=== PATIENT | male | born 1990 | race African-American/Black ===

== ENCOUNTER 2019-02-05 19:46 | Emergency (ER) | payer SELFPAY ==
[~2019-02-05] VITALS: Ht 180.3 cm; Wt 104.3 kg
--- NOTE | 2019-02-05 20:25 | PHYS DOC ---
Past Medical History Past Medical History: No Pertinent History Past Surgical History: No Surgical History Alcohol Use: None Drug Use: None Adult General Chief Complaint Chief Complaint: CHEST PAIN HPI HPI Patient is a 28 year old M who presents with chest pain. The pain began while he was at work about 2 hours ago. He states the pain is a squeezing and aching sensation that worsens with inhalation. He denies any sweating, radiation, vomiting, back pain, or previous episodes in the past. He has no past medical history but does have a family history of an ID in his father at the age of 46. worse with deep breathing worse with moving the left shoulder. Review of Systems Review of Systems Constitutional: Denies fever or chills [] Eyes: Denies change in visual acuity, redness, or eye pain [] HENT: Denies nasal congestion or sore throat [] Respiratory: Denies cough or shortness of breath [] Cardiovascular: No additional information not addressed in HPI [] GI: Denies abdominal pain, nausea, vomiting, bloody stools or diarrhea [] : Denies dysuria or hematuria [] Musculoskeletal: Denies back pain or joint pain [] Integument: Denies rash or skin lesions [] Neurologic: Denies headache, focal weakness or sensory changes [] Endocrine: Denies polyuria or polydipsia [] All other systems were reviewed and found to be within normal limits, except as documented in this note. Current Medications Current Medications Current Medications Medications (Trade) Dose Ordered Sig/Isac Start Time Stop Time Status Last Admin Dose Admin Ketorolac Tromethamine (Toradol 15mg Vial) 15 mg 1X ONCE 02/05/19 20:30 02/05/19 20:31 DC 02/05/19 20:44 15 MG Allergies Allergies Allergies Coded Allergies Type Severity Reaction Last Updated Verified No Known Drug Allergies 10/12/13 No Physical Exam Physical Exam Constitutional: Well developed, well nourished, no acute distress, non-toxic appearance. [] HENT: Normocephalic, atraumatic, bilateral external ears normal, oropharynx moist, no oral exudates, nose normal. [] Eyes: PERRLA, EOMI, conjunctiva normal, no discharge. [] Neck: Normal range of motion, no tenderness, supple, no stridor. [] Cardiovascular:Heart rate regular rhythm, no murmur [] Lungs & Thorax: Bilateral breath sounds clear to auscultation [] Abdomen: Bowel sounds normal, soft, no tenderness, no masses, no pulsatile masses. [] Skin: Warm, dry, no erythema, no rash. [] Back: No tenderness, no CVA tenderness. [] Extremities: No tenderness, no cyanosis, no clubbing, ROM intact, no edema. [] Neurologic: Alert and oriented X 3, normal motor function, normal sensory function, no focal deficits noted. [] Psychologic: Affect normal, judgement normal, mood normal. [] Current Patient Data Vital Signs Vital Signs Date Time Temp Pulse Resp B/P (MAP) Pulse Ox O2 Delivery O2 Flow Rate FiO2 02/05/19 22:30 76 19 136/78 (97) 96 02/05/19 19:53 98.1 Room Air 98.1 Lab Values Laboratory Tests Test 02/05/19 20:00 02/05/19 22:26 White Blood Count 7.1 x10^3/uL (4.0-11.0) Red Blood Count 5.43 x10^6/uL (4.30-5.70) Hemoglobin 14.7 g/dL (13.0-17.5) Hematocrit 44.1 % (39.0-53.0) Mean Corpuscular Volume 81 fL (79-100) Mean Corpuscular Hemoglobin 27 pg (25-35) Mean Corpuscular Hemoglobin Concent 33 g/dL (31-37) Red Cell Distribution Width 13.6 % (11.5-14.5) Platelet Count 210 x10^3/uL (140-400) Neutrophils (%) (Auto) 57 % (31-73) Lymphocytes (%) (Auto) 31 % (24-48) Monocytes (%) (Auto) 9 % (0-9) Eosinophils (%) (Auto) 3 % (0-3) Basophils (%) (Auto) 1 % (0-3) Neutrophils # (Auto) 4.0 x10^3uL (1.8-7.7) Lymphocytes # (Auto) 2.2 x10^3/uL (1.0-4.8) Monocytes # (Auto) 0.6 x10^3/uL (0.0-1.1) Eosinophils # (Auto) 0.2 x10^3/uL (0.0-0.7) Basophils # (Auto) 0.1 x10^3/uL (0.0-0.2) Sodium Level 140 mmol/L (136-145) Potassium Level 3.7 mmol/L (3.5-5.1) Chloride Level 104 mmol/L (98-107) Carbon Dioxide Level 26 mmol/L (21-32) Anion Gap 10 (6-14) Blood Urea Nitrogen 16 mg/dL (8-26) Creatinine 1.0 mg/dL (0.7-1.3) Estimated GFR (Cockcroft-Gault) 108.5 BUN/Creatinine Ratio 16 (6-20) Glucose Level 119 mg/dL (70-99) H Calcium Level 9.4 mg/dL (8.5-10.1) Total Bilirubin 0.3 mg/dL (0.2-1.0) Aspartate Amino Transferase (AST) 21 U/L (15-37) Alanine Aminotransferase (ALT) 49 U/L (16-63) Alkaline Phosphatase 70 U/L (46-116) Troponin I Quantitative < 0.017 ng/mL (0.000-0.055) < 0.017 ng/mL (0.000-0.055) Total Protein 8.0 g/dL (6.4-8.2) Albumin 4.1 g/dL (3.4-5.0) Albumin/Globulin Ratio 1.1 (1.0-1.7) Laboratory Tests 02/05/19 20:00 Laboratory Tests 02/05/19 20:00 EKG EKG Sinus rhythm, rate of 75 no acute ischemic cchanges. j point elev similar to prior actually improved morphology of t waves anterior Radiology/Procedures Radiology/Procedures [] Impressions: Single view chest dated 02/05/2019. Comparison made to 10/12/2013. Clinical data indication: Chest pain started today. FINDINGS: Single upright portable exam performed. Heart and mediastinal contours are stable. Lungs are somewhat hypoinflated but otherwise clear. No consolidation or pleural effusion. No pneumothorax. IMPRESSION: No acute radiographic abnormality. Electronically signed by: Vaibhav Zamudio MD (02/05/2019 9:11 PM) [facility] DICTATED and SIGNED BY: VAIBHAV ZAMUDIO MD DATE: 02/05/192110 Course & Med Decision Making Course & Med Decision Making Pertinent Labs and Imaging studies reviewed. (See chart for details) perc negative trop neg x two low risk heart score h 0 e 0 a 0 r 1 t 0 ok for d/c home pain resolved after toradol and observation in er Dragon Disclaimer Dragon Disclaimer This electronic medical record was generated, in whole or in part, using a voice recognition dictation system. Departure Departure Impression: Primary Impression: Chest pain Disposition: HOME, SELF-CARE Condition: STABLE Referrals: NO PCP (PCP) FABI SIFUENTES MD February 05, 2019 20:25
[2019-02-05] MEDS ORDERED: KETOROLAC 15 MG/ML VIAL. IV ONE (20:30)
[2019-02-05 20:31] LABS: BASO # 0.1 x10^3/uL (0.0-0.2); BASO % 1 % (0-3); EOS # 0.2 x10^3/uL (0.0-0.7); EOS % 3 % (0-3); HEMATOCRIT 44.1 % (39.0-53.0); HEMOGLOBIN 14.7 g/dL (13.0-17.5); LYMPH # 2.2 x10^3/uL (1.0-4.8); LYMPH % 31 % (24-48); MEAN CORPUSCULAR HEMOGLOBIN 27 pg (25-35); MEAN CORPUSCULAR HGB CONC 33 g/dL (31-37); MEAN CORPUSCULAR VOLUME 81 fL (79-100); MONO # 0.6 x10^3/uL (0.0-1.1); MONO % 9 % (0-9); NEUT % 57 % (31-73); PLATELET COUNT 210 x10^3/uL (140-400); RED BLOOD COUNT 5.43 x10^6/uL (4.30-5.70); RED CELL DISTRIBUTION WIDTH 13.6 % (11.5-14.5); WHITE BLOOD COUNT 7.1 x10^3/uL (4.0-11.0)
[2019-02-05 20:39] LABS: CALCIUM 9.4 mg/dL (8.5-10.1); GFR 108.5; POTASSIUM 3.7 mmol/L (3.5-5.1)
[2019-02-05 20:45] LABS: ALBUMIN 4.1 g/dL (3.4-5.0); ALBUMIN/GLOBULIN RATIO 1.1 (1.0-1.7); TOTAL BILIRUBIN 0.3 mg/dL (0.2-1.0)
--- NOTE | 2019-02-05 21:14 | RAD ---
Single view chest dated 02/05/2019. Comparison made to 10/12/2013. Clinical data indication: Chest pain started today. FINDINGS: Single upright portable exam performed. Heart and mediastinal contours are stable. Lungs are somewhat hypoinflated but otherwise clear. No consolidation or pleural effusion. No pneumothorax. IMPRESSION: No acute radiographic abnormality. Electronically signed by: Vaibhav Zamudio MD (02/05/2019 9:11 PM) [facility]
[2019-02-05 22:30] VITALS: BP 136/78
--- NOTE | 2019-02-06 06:04 | EKG ---
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
== END 2019-02-05 23:23 | disposition home or self-care (01) ==
LOC: ER 19:46
DX: R07.89 Other chest pain (principal)
CPT/HCPCS: 36415; 71045; 80053; 84484; 85025; 93005; 96374; 99285; J1885

== ENCOUNTER 2019-09-05 07:04 | Emergency (ER) | payer SELFPAY ==
[~2019-09-05] VITALS: Ht 180.3 cm; Wt 113.4 kg
[2019-09-05 07:30] VITALS: BP 160/95
[2019-09-05] MEDS ORDERED: TETRACAINE 0.5% OPHTH SOLUTION 4ML BOTTLE. OU ONE (07:45)
--- NOTE | 2019-09-05 08:03 | PHYS DOC ---
Past Medical History Past Medical History: No Pertinent History Past Surgical History: No Surgical History Alcohol Use: None Drug Use: None Adult General Chief Complaint Chief Complaint: EYE PROBLEMS HPI HPI Patient is a 28 year old [place] male presents with burning of both eyes the past 3 days with decreased visual acuity in left eye pain. Denies trauma. Reports nasal congestion, rhinorrhea and cough. Denies any trauma eyelid matting. Denies chemical exposure, skin or genital lesions, no foreign body sensations. 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 Patient has been treating symptoms w ith [id number] eyedrops. Does not wear eyeglasses her corrective lenses. 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 No other symptoms or complaints.[] Review of Systems Review of Systems Review of symptoms as per history of present illness. All other review symptoms are negative. All other systems were reviewed and found to be within normal limits, except as documented in this note. Current Medications Current Medications Current Medications Medications (Trade) Dose Ordered Sig/Isac Start Time Stop Time Status Last Admin Dose Admin Fluorescein Sodium (Ful-Gisel) 1 strip 1X ONCE 09/05/19 08:15 09/05/19 08:16 DC Tetracaine HCl (Tetracaine) 2 drop 1X ONCE 09/05/19 07:45 09/05/19 07:47 DC Allergies Allergies Allergies Coded Allergies Type Severity Reaction Last Updated Verified No Known Drug Allergies 10/12/13 No Physical Exam Physical Exam Constitutional: Well developed, well nourished, no acute distress, non-toxic appearance. [] HENT: Normocephalic, atraumatic, bilateral external ears normal, oropharynx moist, no oral exudates, nose normal. [] Eyes: PERRLA, EOMI,Conjunctiva injected, no eyelid swelling or matting. Visual acuity OD: 20/70, OS: 20/00, both eyes 20/70, interocular pressures, OS: 22, OD: 27,. Fluoro, no dendritic lesions, dye uptake. [] Psychologic: Affect normal, judgement normal, mood normal. [] Current Patient Data Vital Signs Vital Signs Date Time Temp Pulse Resp B/P (MAP) Pulse Ox O2 Delivery O2 Flow Rate FiO2 09/05/19 07:30 98.1 75 16 160/95 (116) 98 Room Air 98.1 Lab Values Laboratory Tests Test 09/05/19 08:11 Glucose (Fingerstick) 107 mg/dL (70-99) H EKG EKG [] Radiology/Procedures Radiology/Procedures [] Course & Med Decision Making Course & Med Decision Making Pertinent Labs and Imaging studies reviewed. (See chart for details) [Patient with acted conjunctiva with vision loss and left eye pain. No foreign body, lesions or known chemical exposure. Minor elevation in IOP. Case reviewed with content coordinator for neurologist. Recommend follow up with Ophtho later today.] Dragon Disclaimer Dragon Disclaimer This electronic medical record was generated, in whole or in part, using a voice recognition dictation system. Departure Departure Impression: Primary Impression: Conjunctivitis Additional Impressions: Left eye pain Vision loss, bilateral Disposition: 01 HOME, SELF-CARE Condition: STABLE Referrals: NO PCP (PCP) Problem Qualifiers POLO CRUZ DO Sep 05, 2019 08:03
[2019-09-05] MEDS ORDERED: FLUORESCEIN OPHTH TEST STRIP. OU ONE (08:15)
== END 2019-09-05 08:50 | disposition home or self-care (01) ==
LOC: ER 07:04
DX: H10.9 Unspecified conjunctivitis (principal); H57.12 Ocular pain, left eye; H54.3 Unqualified visual loss, both eyes
CPT/HCPCS: 82962; 99283